=== PATIENT | female | born 1960 | race Caucasian/White ===

== ENCOUNTER 2016-07-18 | Outpatient (CLI) | payer OTHER | END 2016-07-18 02:59 | disposition critical access hospital (66) | DX: R55 Syncope and collapse (principal) | CPT/HCPCS: A0425; A0427 ==

== ENCOUNTER 2016-07-18 03:15 | Emergency (ER) | payer OTHER ==
[2016-07-18] MEDS ORDERED: SODIUM CHLORIDE 0.9% 1,000 ML IV STA ×2 (03:27→04:14)
[2016-07-18] MEDS ORDERED: ONDANSETRON 4 MG/2 ML VIAL IVP STA (03:34)
[2016-07-18] MEDS ORDERED: ONDANSETRON 4 MG/2 ML VIAL ONE (03:36)
== END 2016-07-18 20:43 | disposition home or self-care (01) ==
DX: T42.8X2A Poisoning by antiparkinsonism drugs and other central muscle-tone depressants, intentional self-harm, initial encounter (principal); T42.4X2A Poisoning by benzodiazepines, intentional self-harm, initial encounter; R41.82 Altered mental status, unspecified; R23.8 Other skin changes; Y92.019 Unspecified place in single-family (private) house as the place of occurrence of the external cause; E11.9 Type 2 diabetes mellitus without complications; Z79.84 Long term (current) use of oral hypoglycemic drugs

== ENCOUNTER 2017-01-09 18:05 | Outpatient (CLI) | payer OTHER | END 2017-01-09 18:06 | disposition E | LOC: EMS 18:05 | PROVIDERS: ATTEND Surgery ==